=== PATIENT | male | born 1970 | race Caucasian/White ===

== ENCOUNTER 2017-05-26 11:25 | Day surgery (SDC) | payer OTHER ==
--- NOTE | 2017-05-26 07:29 | HP ---
DATE OF SURGERY: 05/26/2017 ADMISSION DIAGNOSIS: Dysphagia and screening. ANTICIPATED PROCEDURES: 1) EGD. 2) Colonoscopy. HISTORY OF PRESENT ILLNESS: The patient has dysphagia. He is 47 years old. He has had no colonoscopy. He presents for screening colonoscopy. Plan EGD for dysphagia. Colonoscopy for screening. PAST MEDICAL HISTORY: ALLERGIES: NONE. MEDICATIONS: None. PAST SURGICAL HISTORY: Hemorrhoid surgery, hernia surgery. SOCIAL HISTORY: Chewing tobacco. ETOH negative. FAMILY HISTORY: Negative. REVIEW OF SYSTEMS: Negative. PHYSICAL EXAMINATION: VITAL SIGNS: Normal. CHEST: Clear. COR: Regular. ABDOMEN: No palpable organomegaly or mass. IMPRESSION: Dysphagia and screening. PLAN: EGD and colonoscopy.
[~2017-05-26 11:25] MED LIST: DIPRIVAN 200 MG/20 ML IV ONE; Lactated Ringers 1,000 ML IV SCH; Versed 2 MG/2 ML Injection IV ONE
[2017-05-26] MEDS ORDERED: Lactated Ringers 1,000 ML IV ONE (12:06)
[2017-05-26 15:36] VITALS: O2SAT 96
--- NOTE | 2017-05-26 15:41 | OP ---
SURGERY DATE/TIME: 05/26/2017 1425 PREOPERATIVE DIAGNOSES: 1) Dysphagia. 2) Screening. PROCEDURES: 1) EGD with balloon dilatation. 2) Colonoscopy complete to cecum. SURGEON: Jt Acuña M.D. ANESTHESIA: MAC. COMPLICATIONS: None. CONDITION: Stable. INDICATION: A patient requiring evaluation. DESCRIPTION OF PROCEDURE: Taken to endoscopy. Left lateral decubitus position. After MAC sedation provided the scope was introduced. There was a stricture size 20 at the gastroesophageal junction. Fundus, body, antrum, pylorus, duodenal bulb, second portion of the duodenum scope withdrawn and looped upon itself. The scope had just passed through the stricture. It was size 20. The scope was retracted back. Balloon dilator was placed. It was insufflated in two phases to pressure of 25 and pressure of 38 for 1 minute each. It was a size 40. I believe it successfully dilated this to a size 40. It did not look like there was any unusual fracking or issue. Scope withdrawn. Anal digital exam satisfactory. The scope advanced to the cecum. The prep was 6 over 9 but despite this fairly nice exam and there were no mucosal abnormalities. Slightly baggy, slightly redundant, base of cecum, ileocecal valve, appendiceal orifice satisfactory. Ascending, hepatic, transverse satisfactory. Splenic, descending, sigmoid, rectum, anus. The patient tolerated the procedure satisfactorily. He will return in three weeks for follow up with his balloon dilatation.
[2017-05-26 16:33] VITALS: BP 137/95; PULSE 71
== END 2017-05-26 16:20 | disposition home or self-care (01) ==
LOC: SDC 11:25
PROVIDERS: ATTEND Surgery
PROC: 0D748ZZ Dilation of Esophagogastric Junction, Via Natural or Artificial Opening Endoscopic (ICD-10-PCS; principal; 2017-05-26)
PROC: 0DJD8ZZ Inspection of Lower Intestinal Tract, Via Natural or Artificial Opening Endoscopic (ICD-10-PCS; 2017-05-26)
DX: R13.10 Dysphagia, unspecified (principal); Z12.11 Encounter for screening for malignant neoplasm of colon
CPT/HCPCS: 43249; G0121; 00740; 00810; C1726; J2250; J2704

== ENCOUNTER 2024-06-07 06:51 | Day surgery (SDC) | payer OTHER ==
--- NOTE | 2024-06-06 11:06 | HP ---
HISTORY OF PRESENT ILLNESS: The patient is a 54-year-old male, presents with a lipoma of the right upper back. It has been getting bigger. It is uncomfortable at times. PAST MEDICAL HISTORY: Hypertension, gout. MEDICATIONS: Aspirin, allopurinol, enalapril, amlodipine. PAST SURGICAL HISTORY: Inguinal hernia repair, EGD, colonoscopy, hemorrhoid surgery. FAMILY HISTORY: Hypertension, diabetes, brain cancer. SOCIAL HISTORY: Occasional alcohol. ALLERGIES: None. REVIEW OF SYSTEMS: CONSTITUTIONAL: Denies fever or chills. CHEST: Denies shortness of breath or any chest pain. ABDOMEN: Denies abdominal pain. PHYSICAL EXAMINATION: GENERAL: No acute distress. CHEST: Nonlabored. No shortness of breath. CARDIOVASCULAR: Regular rate and rhythm. ABDOMEN: Soft. BACK: He has a 5 to 6 cm mole/lipoma. IMPRESSION: Right back lipoma. PLAN: Excision of right back lipoma with Dr. Acuña. This report was dictated for Dr. Acuña by Rashmi Felipe NP.
[2024-06-07] MEDS: Lactated Ringers 1,000 ML IV SCH (07:14)
[2024-06-07] MEDS ORDERED: CEFAZOLIN 2 GM/100 ML NaCl 2 GM/100 ML IVPB IV ONE (07:56)
[2024-06-07] MEDS: CEFAZOLIN 2 GM/100 ML NaCl 2 GM/100 ML IVPB IV SCH (07:57)
[2024-06-07 08:12] LABS: ANION GAP 14.3 MEQ/L (5-15); Calcium 9.5 mg/dL (8.4-10.2); Creatinine 1 0.81 mg/dL (0.66-1.25); EST GLOMERULAR FILTRATION RATE 103.5 ML/MIN; Potassium 4.2 mmol/L (3.5-5.1)
[2024-06-07] MEDS ORDERED: Xylocaine 1% Vial 30 ML PF IJ ONE (08:46)
[2024-06-07] MEDS ORDERED: SUBLIMAZE 100 MCG/2 ML ONE (09:12)
[2024-06-07] MEDS ORDERED: DIPRIVAN 200 MG/20 ML IV ONE (09:13)
[2024-06-07] MEDS ORDERED: Zofran 4 MG/2 ML VIAL ONE (09:13)
[2024-06-07] MEDS ORDERED: Sensorcaine 0.25% 10 ML ONE ×2 (09:46→10:01)
[2024-06-07 11:24] VITALS: RESP 16
[2024-06-07 11:36] VITALS: BP 133/92; PULSE 73; O2SAT 95
[2024-06-07 11:42] VITALS: TEMP 97.1
--- NOTE | 2024-06-07 18:55 | OP ---
SURGERY DATE/TIME: 06/07/2024 4437 - 1090 PREOPERATIVE DIAGNOSIS: Lipoma of the upper back. POSTOPERATIVE DIAGNOSIS: Lipoma of the upper back. Measurements, 7 x 10 cm. Location, deep. SURGEON: Jt Acuña MD INDICATIONS: Patient has a large, expanding lipoma that is somewhat painful in the upper back. DESCRIPTION OF PROCEDURE AND FINDINGS: Taken to surgery. General anesthetic. Routine prep and drape. An elliptical incision taking about 2 cm of skin. It was unilocular. It was developed. It was totally removed. Hemostasis obtained with electrocautery. Closed with a deep layer of 3-0 Vicryl, followed by a superficial layer of subcuticular 3-0 Vicryl and Steri-Strips. The lesion appeared grossly benign. It came out totally. It was deep. It was basically going down to the ribcage. The patient tolerated the procedure satisfactorily. Findings discussed with the family in the waiting room.
== END 2024-06-07 11:40 | disposition home or self-care (01) ==
LOC: SDC 06:51
PROVIDERS: ATTEND Surgery
DX: D17.1 Benign lipomatous neoplasm of skin and subcutaneous tissue of trunk (principal); I10 Essential (primary) hypertension; Z80.8 Family history of malignant neoplasm of other organs or systems
CPT/HCPCS: 36415; 80048; 93005; J0690; J2405; J2704; J3010